=== PATIENT | male | born 1930 | race Caucasian/White ===

== ENCOUNTER → 2017-02-12 | Outpatient (CLI) | payer MEDICARE ==
[~2017-02-12] MED LIST: ALEVE220 MG PO; CARBIDOPA-LEVO1 EAC4 PO; LEVOTHROID (SY50 MCG PO; MIRALAX17 GM PO; MYRBETRIQ50 MG PO; PROSCAR5 MG PO
--- NOTE | ~2017-02-12 | ENPV ---
Vascular Lower Extremities DVT Study Procedure Demographics Patient Name BERNABE WISEMAN Date of Study 02/12/2017 Patient Number [id number] Gender Male Date of 1930 Age 86 Visit Number [id number] Height Accession Number [id number] Weight Room Number BSA BMI Referring Interpreting Veronica Lao Physician Physician Physician Ordering Physician Margarita Haro MD [employer] Machine Adjuster Program Support Specialist Claire Rojas BS, RT Conclusions Summary TECHNIQUE: The veins of the lower extremity on the right were evaluated from the groin to the ankle using taylor scale, compression, and augmentation. Venous hemodynamics were evaluated with color flow and spectral Doppler. FINDINGS: The deep and superficial veins of the right leg show normal color flow and compressibility without thrombosis. IMPRESSION: 1. NEGATIVE RIGHT LOWER EXTREMITY VENOUS DOPPLER. Procedure Type of Study: Veins:Lower Extremities DVT Study, Lower Extremity Right. Indications for Study:Swelling. Patient Status:Routine. Study Location:[facility] Lab. Technical Quality:Adequate visualization. - Preliminary reported to:Dr Avila. Velocities are measured in cm/s ; Diameters are measured in cm Right Lower Extremities DVT Study Measurements Right 2D and Doppler Measurements + + + + +------+------+ + !Location !Visualized!Compressibility!Thrombosis!Signal!Reflux!Reflux ! ! ! ! ! ! ! !(sec) ! + + + + +------+------+ + !GSV Thigh !Yes !Yes !None !Phasic!No ! ! + + + + +------+------+ + !Common !Yes !Yes !None !Phasic!No ! ! !Femoral ! ! ! ! ! ! ! + + + + +------+------+ + !Prox !Yes !Yes !None !Phasic!No ! ! !Femoral ! ! ! ! ! ! ! + + + + +------+------+ + !Mid Femoral!Yes !Yes !None !Phasic!No ! ! + + + + +------+------+ + !Dist !Yes !Yes !None !Phasic!No ! ! !Femoral ! ! ! ! ! ! ! + + + + +------+------+ + !Popliteal !Yes !Yes !None !Phasic!No ! ! + + + + +------+------+ + !Gastroc !Yes !Yes !None !Phasic!No ! ! + + + + +------+------+ + !PTV !Yes !Yes !None !Phasic!No ! ! + + + + +------+------+ + !Peroneal !Yes !Yes !None !Phasic!No ! ! + + + + +------+------+ + Left Lower Extremities DVT Study Measurements Left 2D and Doppler Measurements + + + + +------+------+ + !Location !Visualized!Compressibility!Thrombosis!Signal!Reflux!Reflux ! ! ! ! ! ! ! !(sec) ! + + + + +------+------+ + !GSV Thigh !Yes !Yes !None !Phasic! ! ! + + + + +------+------+ + !Common !Yes !Yes !None !Phasic! ! ! !Femoral ! ! ! ! ! ! ! + + + + +------+------+ + Signature dtt: Valdemar Martin dtchalo: 02/12/17 1140 Physician Self Edit
== END | disposition disaster alternative care site (69) ==
LOC: GCAR 11:00
DX: M79.89 Other specified soft tissue disorders (principal); M25.50 Pain in unspecified joint; M25.474 Effusion, right foot

== ENCOUNTER → 2017-05-11 | Outpatient (CLI) | payer MEDICARE ==
[2017-05-11 14:21] LABS: CREATININE 1.2 mg/dL (0.6-1.3)
== END | disposition disaster alternative care site (69) ==
LOC: GRAD 13:13
PROVIDERS: Urology
DX: R31.0 Gross hematuria (principal); N40.0 Benign prostatic hyperplasia without lower urinary tract symptoms; N28.1 Cyst of kidney, acquired; K57.30 Diverticulosis of large intestine without perforation or abscess without bleeding; Z96.0 Presence of urogenital implants; Z90.49 Acquired absence of other specified parts of digestive tract
CPT/HCPCS: Q9967